=== PATIENT | female | born 1970 | race African-American/Black ===

== ENCOUNTER 2017-01-02 13:54 | Emergency (ER) | payer OTHER ==
[~2017-01-02] VITALS: Ht 149.9 cm; Wt 66.2 kg
[~2017-01-02 13:54] MED LIST: BENTYL20 M1 PO; MULTI-DAY VITA1 EACH PO; OXYCODONE-ACET1 EAC1 PO; ZOFRAN4 M2 SL
[2017-01-02 14:04] VITALS: BP 141/93
--- NOTE | 2017-01-02 15:14 | RADIOLOGY REPORT ---
EXAMINATION: XR CHEST CLINICAL INFORMATION: Cough. Fever. COMPARISON: None TECHNIQUE: 2 views of the chest were obtained. FINDINGS: No significant abnormality is noted involving the heart, lungs, mediastinum, bony thorax or soft tissues. IMPRESSION: Unremarkable examination.
--- NOTE | 2017-01-02 16:25 | ED INFLUENZA/URI COMPLAINT ---
History of Present Illness General Chief Complaint: Upper Respiratory Sx/Fever Stated Complaint: CHILLS, WEAK, COUGH Source: patient Exam Limitations: no limitations Vital Signs & Intake/Output Vital Signs & Intake/Output Vital Signs Date Time Temp Pulse Resp B/P Pulse O2 O2 Flow FiO2 Ox Delivery Rate 01/02 1427 Room Air 01/02 1412 101.8 01/02 1404 101.8 116 16 141/93 99 Room Air Allergies Coded Allergies: NO KNOWN ALLERGIES (08/19/11) Reconcile Medications Dicyclomine HCl (Bentyl) 20 MG TABLET 1 TAB PO 4 TIMES/DAY PRN ABDOMINAL PAIN Multivitamin (Multi-Day Vitamins) 1 EACH TABLET 1 TAB PO DAILY SUPPLEMENT ( Reported) Ondansetron HCl (Zofran) 4 MG TABLET 1 TAB SL TID PRN NAUSEA Oxycodone HCl/Acetaminophen (Oxycodone-Acetaminophen 10-325) 1 EACH TABLET 1 TAB PO BID PAIN (Reported) Triage Note: 46 Y/O FEMALE C/O URI SYMPTOMS SINCE FRIDAY; C/O BODY ACHES, HEADACHES, DIZZINESS AND COUGH. PT STATES SHE HAS TRIED NYQUIL WITH NO RELIEF. Triage Nurses Notes Reviewed? yes HPI: Ms. Pendleton is a 46 yo f with PMH of ovarian cysts, nephrolithiasis, arthritis presented to the emergency department for upper respiratory symptoms. Patient states she was seen by her primary care doctor within the past week and started on NyQuil. She denies improvement of her symptoms with NyQuil. She endorses nonproductive cough. Dizziness when she stands. Decreased PO intake of both food and liquids. She endorses subjective fevers and chills. Patient also has a headache today. Patient also endorses mild sore throat. Patient denies any chest pain, abdominal pain, nausea, vomiting, or diarrhea. No ill contacts. (SHEYLA MILLAN MD) Past History Travel History Traveled to [place] past 21 day No Medical History Any Pertinent Medical History? see below for history Neurological: NONE EENT: NONE Cardiovascular: NONE Respiratory: NONE Gastrointestinal: ABDOMINAL PAIN Hepatic: NONE Renal: nephrolithiasis Musculoskeletal: ARTHRITIS Psychiatric: NONE Endocrine: NONE Blood Disorders: NONE Cancer(s): NONE FLAT FINISHER/Reproductive: OVARIAN CYSTS Surgical History Surgical History: Psychosocial History What is your primary language Occitan Tobacco Use: Never used Family History Hx Contributory? No (SHEYLA MILLAN MD) Review of Systems Review of Systems Constitutional: Reports: see HPI. Comments Review of systems: See HPI, All other systems negative. Constitutional: + dizziness. no chills, fever, or weight loss. HEENT: No visual changes, + sore throat, no congestion. + headache Cardiovascular: No chest pain, palpitation, orthopnea or ankle swelling Skin: no jaundice, no rashes. No lacerations. Respiratory: +cough. No dyspnea, sputum or hemoptysis GI: No nausea, no vomiting : No dysuria, No hematuria Musculoskeletal: no back pain, no neck pain Neurologic: No numbness no confusion Psych: No stress anxiety or depression Heme/endocrine: No bruising, no bleeding, no polyuria or polydipsia Immunology: No splenectomy (SHEYLA MILLAN MD) Physical Exam Physical Exam Ears, Nose, Throat: normal ENT inspection, moist mucous membrane, hearing grossly normal Comments: Well-developed well-nourished person in no acute distress HEENT: Normal EENT exam, extraocular motion intact, no nystagmus. Pupils equally round and reactive to light and accommodation. Nose is atraumatic. External auditory canal and Tympanic membranes clear. Pharynx normal. No swelling or edema. Neck: Supple, no lymphadenopathy, normal range of motion without pain or tenderness Back: Nontender, no CVA tenderness. Full range of motion Cardiovascular: Regular rate and rhythms no murmurs rubs or gallops, normal JVP Respiratory: Chest nontender. No respiratory distress.breath sounds clear to auscultation bilaterally Abdomen: Soft, nontender nondistended, no appreciable organomegaly. Normal bowel sounds. No ascites Extremity: No edema, no calf tenderness to palpation, normal and equal pulses. Neuro: Alert oriented x3, motor sensory normal, cranial nerves II through XII grossly intact. Skin: No appreciable rash on exposed skin, skin is warm and dry. Psych: Mood and affect is normal, memory and judgment is normal. Core Measures Severe Sepsis Present: No Septic Shock Present: No (SHEYLA MILLAN MD) Progress Differential Diagnosis: influenza, otitis, pneumonia, pharyngitis, sinusitis, upper respiratory infection Plan of Care: Orders Procedure Date/time Status THROAT CULTURE W/QUICK STREP 01/02 1450 Active RAPID VIRAL INFLUENZA A 01/02 1406 Complete Microbiology 01/02 1409 NASOPHARYN: Influenza Virus A & B Rapid Smear - COMP Patient is otherwise well appearing. She is febrile here to 101 and tachycardic to 116. Patient endorses nasal congestion, cough nonproductive of sputum, dizziness, headache and diffuse myalgias. She likely has URI. However given the fact that her symptoms have been going on for 3-4 days we'll obtain chest x- ray, influenza swab, strep swab. She wants to know if it antibiotics are indicated. Influenza swab was negative for flu. The strep screen was also negative. Patient recommended to encourage PO intake of liquids to stay well- hydrated. Patient also given Motrin 600 mg to defervesce. Explained to the patient that with fevers, she will feel diffuse myalgias as well as headache. Chest x-ray doesn't show any obvious pneumonia. Patient feels better after Motrin. There is no otitis media noted on TM exam. Throat is otherwise well- appearing without any exudates. Per [facility] criteria. Patient does not qualify to receive antibiotics today. Discharge home with instructions to encourage PO intake. Patient given return precautions and instructions to follow up with her PCP in one to 2 days. (SHEYLA MILLAN MD) Diagnostic Imaging: Viewed by Me: Radiology Read. Discussed w/RAD: Radiology Read. CXR Impression: no acute abnormality, no infiltrates, normal size heart, normal mediastinum Initial ED EKG: none (SHEYLA MILLAN MD) Departure Departure Time of Disposition: 1622 Disposition: HOME OR SELF CARE Condition: Stable Clinical Impression Primary Impression: URI (upper respiratory infection) Qualifiers: URI type: unspecified viral URI Qualified Codes: J06.9 - Acute upper respiratory infection, unspecified; B97.89 - Other viral agents as the cause of diseases classified elsewhere Referrals: TEJAS RUTLEDGE MD (PCP/Family) Additional Instructions: Please make sure you drink plenty of fluids and drink some soup. It is important that you stay well-hydrated. Use Motrin or Tylenol for the fever. You can use 600 mg of Motrin every 6 hours or 650 mg of Tylenol every 6 hours for the fever. Eat bland food for the next 2 or 3 days as to not of severe stomach and cause any nausea and vomiting. U do not have the flu, strep throat or pneumonia here today. This is likely just a cold and will pass, however it can take several days. Departure Forms: Customer Survey General Discharge Information (SHEYLA MILLAN MD) Resident Co-Sign Statement Statement: ED Attending supervision documentation- [] I saw and evaluated the patient. I have also reviewed all the pertinent lab results and diagnostic results. I agree with the findings and the plan of care as documented in the Resident's documentation. [X] I have reviewed the ED Record and agree with the Resident's documentation. [] Additions or exceptions (if any) to the Resident's note and plan are summarized below: [] (PILO BEST DO)
== END 2017-01-02 16:28 ==
LOC: ERH 13:54
DX: J06.9 Acute upper respiratory infection, unspecified (principal)
CPT/HCPCS: 87804; 87804-59